=== PATIENT | male | born 1990 | race Caucasian/White ===

== ENCOUNTER 2017-11-22 13:31 | Emergency (ER) | payer OTHER, SELFPAY ==
[2017-11-22 13:32] VITALS: BP 136/90; PULSE 92; RESP 14; TEMP 37.2; O2SAT 99; BMI 26.7
--- NOTE | 2017-11-22 13:47 | ED.VISSUMM ---
- ER Visit Summary Date of Service: 11/22/17 Chief Complaint: [] boneless chicken stuck in esophagus History of Present Illness: The patient is a 27 M [] was eating boneless chicken at a restaurant when it got stuck at the level of the sternal notch, he is unable to swallow his saliva or water. He is having no difficulty with speaking or phonation. Indicates he has had this multiple times in the past where he chokes when he eats meats, he has no history of esophageal issues dysmotility masses etc. He does not have any obvious history of reflux, despite having multiple episodes of choking spells where with eating of meats he has never been seen for this condition, in fact he denies a past history Staying in the bed no distress points to the upper sternum as where he feels the food is stuck his speech is easy and normal no stridor or drooling Physical Examination: [] L signs are within normal red limits his HEENT exam and oral cavity exam unremarkable again no stridor or drooling speech is easy and normal his lungs are clear heart tones are unremarkable, upper lower extremities abdominal exam neurologic exam normal Test Results: [] Emergency Department Course and Treatment: [] That history we will start IV fluids glucagon Versed if this does not work he will need to be transferred for definitive GI management as there are no GI consultations available today he agrees and understands Patient vomited once spontaneously and then afterwards he stated that the obstruction resolved by itself, he received no medication. Afterwards he was able to drink multiple glasses of water with no difficulty. We did observe him in the department he continued to have no symptoms of any kind at this time he wants to be discharged home I have explained he must follow-up with GI, avoid meats chew all of his foods appropriately and return for change in symptoms he will be given the referrals Treatment Plan: [] Disposition: [] Stable stable home Impression: [] Esophageal food obstruction resolved spontaneously This note was generated with [employer] dictation software. It may contain incorrect words, spelling, and punctuation that were not noted in review of the chart prior to signing ED Disposition - Plan for ED Patient: Chief Complaint: Foreign Body Referrals: Care Physician,No Primary [Primary Care Provider] -
--- NOTE | 2017-11-22 14:02 | ED.RN ---
PT ATTEMPTING TO SWALLOW WATER AND FELT FB DISLODGE. ABLE TO DRINK FLUIDS NOW.
--- NOTE | 2017-11-22 14:33 | ED.DEP ---
ED Disposition - Plan for ED Patient: Chief Complaint: Foreign Body Instructions: ED Foreign Body Esophageal Rslv Referrals: Care Physician,No Primary [Primary Care Provider] - Maurilio Atkins MD [STAFF PHYSICIAN] -
[2017-11-22 15:01] VITALS: BP 118/76; PULSE 84; RESP 16; O2SAT 96
== END 2017-11-22 15:01 | disposition home or self-care (01) ==
PROVIDERS: Emergency Provider Emergency Medicine
DX: T18.128A Food in esophagus causing other injury, initial encounter (principal)
CPT/HCPCS: 99282; J7040; A4216

== ENCOUNTER → 2018-02-10 16:36 | Outpatient (CLI) | payer OTHER, SELFPAY ==
[2018-02-12 16:10] LABS: Endomysial Antibody IgA Negative (Negative)
[2018-02-13 14:22] LABS: Immunoglobulin A 113 mg/dL (90-386); t-Transglutaminase IgA <2 U/mL (0-3)
== END ==
PROVIDERS: Visit Provider Internal Medicine Gastroenterology
DX: R10.9 Unspecified abdominal pain (principal)
CPT/HCPCS: 36415; 82784; 83516; 86255

== ENCOUNTER 2024-07-07 07:41 | Observation (INO) | payer OTHER, SELFPAY ==
[2024-07-07] VITALS (14 sets, daily range): BP systolic 126–152; BP diastolic 78–103; PULSE 75–99; RESP 12–16; TEMP 36.4–37.7; O2SAT 93–100; BMI 26.6
--- NOTE | 2024-07-07 07:55 | CT_ITS ---
STUDY: CT ABDOMEN AND PELVIS WITH CONTRAST REASON FOR EXAM: Male, 34 years old. RLQ Pain. Nausea and vomiting. History of recent vasectomy. RADIATION DOSAGE (If Supplied By Facility): CTDIvol = ( 14.79 ) mGy, DLP = ( 745.62 ) mGycm TECHNIQUE: Transaxial images were obtained from the dome of the diaphragm to the symphysis pubis without oral contrast. IV 100mL Isovue-370 was administered. Sagittal and coronal images were reconstructed. Individualized dose optimization techniques were used for this CT. COMPARISON: None. FINDINGS: The visualized lung bases are unremarkable. The visualized portions of the heart are within normal limits. Normal liver. Normal gallbladder and extrahepatic biliary system. Normal spleen. Normal pancreas. Normal bilateral adrenal glands. Normal right kidney. Normal left kidney. Normal visualized stomach. Normal small intestine. There are multiple colonic diverticula consistent with diverticulosis. There is a tubular, thick-walled appendix (>7mm), consistent with acute appendicitis. A tiny calcified appendicolith is seen within the appendiceal lumen. Normal abdominal aorta. Normal inferior vena cava. Normal retroperitoneum. Normal urinary bladder. Normal abdominal wall. Small benign-appearing bilateral inguinal lymph nodes. Loss of the normal lumbar lordosis. CT/Abdomen/Pelvis W IV Cont ONLY IMPRESSION: Findings integrated with uncomplicated acute appendicitis with a tiny calcified appendicolith. N.B. : The above Results were Read Back by Thaddeus So MD to Scar Dillon DO, and understanding confirmed on 07/07/2024 09:06:32 (ET). Electronically Signed: Thaddeus So MD at 9:07 EDT ,
--- NOTE | 2024-07-07 07:56 | ED.VIS.GI ---
HPI HPI - GI History of Present Illness Chief Complaint: Abd Pain Informant: patient Narrative Narrative: 34-year-old male presenting to the emergency room with right lower quadrant abdominal pain. Patient states that he had a vasectomy last week with Dr. Summers. He states that on Thursday he felt good enough to go to work and was doing well until yesterday. Just after lunch he developed a sharp pain in his abdomen associated with nausea and vomiting. He states now he feels the pain in the right lower quadrant. It has been constant. It hurts worse when he stands up and goes to walk. No bowel movement today. He has not felt like eating but is not experience any significant nausea. No urinary symptoms. No scrotal/testicular pain. No reported fevers. No URI symptoms. He denies any prior abdominal surgeries PFSH [facility] Medical History Vasectomy planned ACL tear Home Medications ?Medication ?Instructions ?Recorded ?Last Taken ?Type NK 07/07/24 Unknown History Allergy/AdvReac Type Severity Reaction Status Date / Time No Known Allergies Allergy Verified 07/07/24 07:41 Social History Smoking Status: Never smoker ROS ROS ED Constitutional Constitutional ED: Denies chills, fever(s) or weight loss Eyes Eyes: Denies change in vision or diplopia ENT ENT ED: Denies ear pain, rhinorrhea or sore throat Cardiovascular Cardiovascular: Denies chest pain, orthopnea, palpitations or racing heartbeat Respiratory/Chest Respiratory/Chest: Denies cough, dyspnea or orthopnea Gastrointestinal Gastrointestinal: Reports abdominal pain, nausea and vomiting; Denies diarrhea Genitourinary Genitourinary ED: Denies dysuria, hematuria or urinary frequency Musculoskeletal Musculoskeletal: Denies arthralgias or myalgias Integumentary Denies abscess or rash Neurologic Neurologic: Denies headache(s) or weakness Psychiatric Psychiatric: Denies anxiety, depression, suicidal ideation or suicidal thoughts Endocrine Endocrinology: Denies polydipsia, polyphagia or polyuria Allergic/Immunologic Allergic/Immunologic ED: Denies mouth swelling, tongue swelling or urticaria EXAM Physical Exam Const Vital Signs: 07/07/24 07:41 Temperature 97.8 F Temperature Source Oral Pulse Rate 87 Respiratory Rate 14 Blood Pressure 135/103 H Blood Pressure Mean 113 Pulse Ox 100 Oxygen Delivery Method Room Air Positive well nourished and well developed General Appearance ED: well developed and NAD HEENT Reports normocephalic, head/scalp atraumatic and moist mucous membranes Eyes PERRL and EOMs intact bilaterally Neck no lymphadenopathy, supple and no JVD Resp normal respiratory effort and clear to auscultation bilaterally Cardio regular rate, regular rhythm and no murmurs GI Auscultation: normoactive bowel sounds Palpation: soft, tender RLQ and guarding; Negative for rebound tenderness present Back/Spine no CVA tenderness and normal ROM Extremity normal to inspection General Extremety ED: Negative for edema General Extremity: Negative for edema Neuro oriented x3 and CN's II-XII intact bilaterally Sensorium / Orientation: alert Motor Exam: strength 5/5 throughout Psych mental status grossly normal Mood & Affect: Negative for depressed or tearful Skin no rashes or lesions noted and no wounds MDM MDM MDM Narrative Medical decision making narrative: Differential diagnosis includes but not limited to but not limited to appendicitis colitis ureterolithiasis UTI Patient's white count is 14.1. LFTs showed a bilirubin of 1.4 direct 0.[address] abdomen pelvis demonstrates changes consistent with acute appendicitis with appendicolith. Patient received pain and nausea medication. I had ordered Zosyn and discussed the case with our on-call surgeon Dr. Jimenez. Plan is admission into hospital for operative care. History & Record Review Discussion w/independent historian: Patient Lab Data Attestation: I reviewed the patient's lab results. Labs: Laboratory Results - last 24 hr 07/07/24 08:10 WBC 14.1 H RBC 6.09 Hgb 16.8 H Hct 50.1 MCV 82.3 MCH 27.6 MCHC 33.5 RDW Std Deviation 36.9 RDW Coeff of Darryl 12.4 Plt Count 265 MPV 10.1 Immature Gran % (Auto) 0.400 Neut % (Auto) 82.2 H Lymph % (Auto) 9.0 L [place] % (Auto) 7.8 Eos % (Auto) 0.3 Baso % (Auto) 0.3 Absolute Neuts (auto) 11.6 H Absolute Lymphs (auto) 1.27 Nucleated RBC % 0 Sodium 137 Potassium 3.7 Chloride 102 Carbon Dioxide 31.0 Anion Gap 4 L BUN 14 Creatinine 1.02 Estim Creat Clear Calc 97.79 Est GFR (MDRD) Af Amer 107 Est GFR (MDRD) Non-Af 88 BUN/Creatinine Ratio 13.7 Glucose 113 H Calcium 9.8 Total Bilirubin 1.40 H Direct Bilirubin 0.27 AST 18 ALT 39 Alkaline Phosphatase 89 Total Protein 7.7 Albumin 3.9 Globulin 3.8 Lipase 18 Radiography Diagnostic Testing: Clinical Impression(s) from Imaging Studies Abdomen/Pelvis CT 07/07/24 07:55 IMPRESSION: Findings integrated with uncomplicated acute appendicitis with a tiny calcified appendicolith. N.B. : The above Results were Read Back by Thaddeus So MD to Scar Dillon DO, and understanding confirmed on 07/07/2024 09:06:32 (ET). Electronically Signed: Thaddeus So MD at 9:07 EDT , ADDENDUM: 07/07/24 0914 IMPRESSION: Findings integrated with uncomplicated acute appendicitis with a tiny calcified appendicolith. N.B. : The above Results were Read Back by Thaddeus So MD to Scar Dillon DO, and understanding confirmed on 07/07/2024 09:06:32 (ET). Electronically Signed: Thaddeus So MD at 9:07 EDT , Management Discussion w/another healthcare provider: Certified Orthotist (Dr. Jimenez) and Radiologist (Dr. So) Discharge Plan Dx/Rx/DC Orders Clinical Impression: Acute appendicitis, Abdominal pain, acute Disposition Disposition: Acute Care Hospital [facility] Discharge Date/Time: 07/07/24 10:39
[2024-07-07] MEDS: Ondansetron 4 MG/2 ML Vial IV (08:16)
[2024-07-07] MEDS: Morphine 4 MG/ML Syringe IV (08:16)
[2024-07-07 08:26] LABS: Absolute Lymphocyte Count 1.27 X10^3/uL (0.83-4.51); Absolute Neutrophil Count 11.6 X10^3/uL (2.0-7.7); Basophil# 0.04 X10^3/uL; Basophil% 0.3 % (0-1); Eosinophil# 0.04 X10^3/uL; Eosinophils% 0.3 % (0-5); Hematocrit 50.1 % (40-54); Hemoglobin 16.8 g/dL (13.0-16.5); Lymphocyte # 1.27 X10^3/ul (0.83-4.51); Mean Corp Hgb Conc 33.5 g/dL (32-36); Mean Corpuscular Hgb 27.6 pg (27.0-32.0); Mean Corpuscular Volume 82.3 fL (80-94); Mean Platelet Vol. 10.1 fl (6.2-12.0); Monocyte% 7.8 % (0-10); NRBC Flagged by Analyzer 0 % (0-5); Neutrophil # 11.59 X10^3/uL (2.7-7.7); Neutrophil % 82.2 % (47-70); Platelet Count 265 K/mm3 (150-450); RBC Distribution Width CV 12.4 % (11.6-14.6); RBC Distribution Width SD 36.9 fl (35.1-43.9); Red Blood Count 6.09 M/mm3 (4.6-6.2); White Blood Count 14.1 K/mm3 (4.4-11.0)
--- OUTSIDE RECORDS SUMMARY | 2024-07-07 08:30 | XMS RPT_ITS | CCD ---
Author Organization [place] [employer] Results Test Name Value Interpretation Reference Range Facil ity CNOVon 08-18-2019 CNOV Office Visit ([facility] ) VAHE MART ([id number]) 1990 Date Time Provider Department 08/18/19 7:30 AM ANJU PIPER) WSTR During your visit today, we recorded the following information about you: Temperature Pulse Respiration Blood pressure 100.3 degrees 100/minute 18/minute 122/74 Weight 78.9 kg Anju Piper PA-C 08/18/2019 9:39 AM Signed Subjective HPI HPI Vahe Mart is a 29 year old male who presents today for CC of progressive sore throat, headaches in the morning- unsure as to whether this is from coughing. Cough has been present for 4 weeks now. He notes that it was dry initially, but now he's bringing up green sputum now. Has woken up in sweats since Thursday. Has not been able to sleep this past week d/t ST and cough. Also c/o hoarseness. Pt has tried OTC cough suppressant (thinks Robitussin). BP 122/74 Pulse 100 Temp 37.9 ?C (100.3 ?F) (Tympanic) Resp 18 Wt 78.9 kg (174 lb) SpO2 97% BMI 27.25 kg/m? ALLERGIES No Known Allergies ACTIVE PROBLEM LIST Headache(784.0) Family History Problem Relation Age of Onset - Diabetes Paternal Grandfather Social History Tobacco Use - Smoking status: Never Smoker - Smokeless tobacco: Never Used Substance Use Topics - Alcohol use: Not on file - Drug use: Not on file Review of Systems Constitutional: Negative for chills, fever and malaise/fatigue. HENT: Negative for congestion, ear pain, sinus pain and sore throat. Respiratory: Negative for cough, sputum production, shortness of breath and wheezing. Cardiovascular: Negative for chest pain. Neurological: Negative for headaches. Objective Physical Exam Constitutional: He is oriented to person, place, and time and well-developed, well-nourished, and in no distress. HENT: Head: Normocephalic and atraumatic. Right Ear: Tympanic membrane, external ear and ear canal normal. Tympanic membrane is not injected, not perforated, not erythematous, not retracted and not bulging. No middle ear effusion. Left Ear: Tympanic membrane, external ear and ear canal normal. Tympanic membrane is not injected, not perforated, not erythematous, not retracted and not bulging. No middle ear effusion. Nose: No mucosal edema or rhinorrhea. Right sinus exhibits no maxillary sinus tenderness and no frontal sinus tenderness. Left sinus exhibits no maxillary sinus tenderness and no frontal sinus tenderness. Mouth/Throat: Uvula is midline and mucous membranes are normal. Posterior oropharyngeal erythema (Two small vesicles noted on soft paalte) present. No oropharyngeal exudate, posterior oropharyngeal edema or tonsillar abscesses. Neck: Normal range of motion. Cardiovascular: Normal rate, regular rhythm and normal heart sounds. Pulmonary/Chest: Effort normal and breath sounds normal. He has no decreased breath sounds. He has no wheezes. He has no rhonchi. He has no rales. Lymphadenopathy: Head (right side): No submental, no submandibular, no tonsillar, no preauricular, no posterior auricular and no occipital adenopathy present. Head (left side): No submental, no submandibular, no tonsillar, no preauricular, no posterior auricular and no occipital adenopathy present. He has no cervical adenopathy. Right cervical: No superficial cervical and no posterior cervical adenopathy present. Left cervical: No superficial cervical and no posterior cervical adenopathy present. Neurological: He is alert and oriented to person, place, and time. Skin: Skin is warm and dry. Psychiatric: Affect normal. Nursing note and vitals reviewed. ASSESSMENT/PLAN: 1. Sinobronchitis - ICD9: 473.9, 490, ICD10: J32.9, J40 (primary diagnosis) - Will begin treatment with Augmentin 875 mg PO BID for 10 days - The patient should also be given Cough syrup with codeine- Rx given and warm salt water gargles, throat lozenges and/or OTC throat spray as needed for the first 5-7 days of treatment. - Supportive care with plenty of fluids, rest, and analgesia prn. - Follow up in one week if symptoms persist or worsen. - AMOXICILLIN 875 MG-POTASSIUM CLAVULANATE 125 MG TABLET - CODEINE 10 MG-GUAIFENESIN 100 MG/5 ML ORAL LIQUID - PREDNISONE 20 MG TABLET 2. Cough present for greater than 3 weeks - ICD9: 786.2, ICD10: R05 Suspect to be related to PND from sinusitis - will tx w/ prednisone d/t cough and significant throat symptoms. Rx for cheratussin printed to be taken to help w/ cough at night - CODEINE 10 MG-GUAIFENESIN 100 MG/5 ML ORAL LIQUID - PREDNISONE 20 MG TABLET 3. Sore throat - ICD9: 462, ICD10: J02.9 - Suspect to be related to PND - no evidence of strep on exam - Rapid Strep negative in the office today - Discussed supportive care treatment with fluids, rest and analgesia. - Contagious dz precautions discussed- including considered contagious until on antibiotics for 24 hours - Call back if drooling, increased temperature, symptoms of dehydration and/or still sick in one week - RAPID STREP TEST B/O - AMOXICILLIN 875 MG-POTASSIUM CLAVULANATE 125 MG TABLET - PREDNISONE 20 MG TABLET Pt advised to see PCP if symptoms persist or progress. Reviewed red flags with patient and when to seek care sooner. The patient indicates understanding of these issues and agrees with the plan. NOEMÍ Royal PA-C 08/18/2019 8:15 AM Signed RESPIRATORY INFECTION GENERAL INFORMATION: An upper respiratory tract infection, or cold, is a viral infection of the airway passages. It can be caused by any one of almost 200 different viruses. Common symptoms include a runny or stuffy nose, sneezing, watery eyes, sore throat, cough, and slight fever. Colds are contagious, especially during the first 3 or 4 days and cannot be cured by antibiotics. They are spread by coughs, sneezes, and direct contact, especially [id number]. A respiratory tract infection usually clears up in a few days, but some people may be sick for a week or two. INSTRUCTIONS: 1. Be careful not to blow your nose too hard because this may cause a nosebleed. 2. Use a cool-mist humidifier (vaporizer) to increase air moisture. This will make it easier for you to breathe. Do not use hot steam. 3. Rest as much as possible and get plenty of sleep. 4. Wash your hands often, especially after you blow your nose. Cover your mouth and nose with a tissue when you sneeze or cough. 5. Drink plenty of clear fluids (8 glasses a day) such as water, fruit juice, tea, clear soups, and carbonated beverages. CONTACT YOUR DOCTOR IF : 1. Your fever lasts more than 3 days. 2. You have a sore throat that gets worse or you see white or yellow spots in your throat. 3. Your cough gets worse or lasts more than 10 days. 4. You develop a rash anywhere on your skin. 5. You have an earache or a headache. 6. You have thick greenish or yellowish discharge from your nose. RETURN IMMEDIATELY IF: 1. You cough up thick yellow, green, mccormick, or bloody sputum. 2. You have difficulty breathing, pain in your chest, or your skin or nails look mccormick or blue. 3. You have shaking chills or a temperature over 102 F (39 C). Referring Provider: SELF [200] Allergies As of Date: 08/18/2019 (No Known Allergies) Date Reviewed: 08/18/2019 Reviewed by: Angelina Mak Ma - Fully Assessed Reason for Visit: Head Congestion [234] Cmt: cough, sore throat and headache x 4 weeks Primary Visit Diagnosis:Sinobronchi tis [J32.9, J40] Other Visit Diagnoses:Cough present for greater than 3 weeks [R05] Sore throat [J02.9] Order(s):RAPID STREP TEST B/O [[id number]] Order #: [id number] amoxicillin-clavulani c acid (AUGMENTIN) 875-125 mg per tabletTake 1 tablet by mouth twice daily for 10 days.Disp: 20 tabletRfl: 0 codeine-guaiFENesin (ROBITUSSIN AC) 10-100 mg/5 mL syrupTake 5-10 mL by mouth four times daily as needed for Cough for up to 7 days. May cause drowsiness.Disp: 120 mLRfl: 0 predniSONE (DELTASONE) 20 mg tabletTake 2 tablets by mouth once daily for 5 days.Disp: 10 tabletRfl: 0 Prescriptions as of 08/18/2019 Sig: AMOXICILLIN 875 MG-POTASSIUM * Take 1 tablet by mouth twice * CODEINE 10 MG-GUAIFENESIN 100* Take 5-10 mL by mouth four ti* PREDNISONE 20 MG TABLET Take 2 tablets by mouth once * Problem List As Of Date 08/18/2019 Noted Resolved Headache [R51] 06/21/2010 Other instructions from your clinician: RESPIRATORY INFECTION GENERAL INFORMATION: An upper respiratory tract infection, or cold, is a viral infection of the airway passages. It can be caused by any one of almost 200 different viruses. Common symptoms include a runny or stuffy nose, sneezing, watery eyes, sore throat, cough, and slight fever. Colds are contagious, especially during the first 3 or 4 days and cannot be cured by antibiotics. They are spread by coughs, sneezes, and direct contact, especially [id number]. A respiratory tract infection usually clears up in a few days, but some people may be sick for a week or two. INSTRUCTIONS: 1. Be careful not to blow your nose too hard because this may cause a nosebleed. 2. Use a cool-mist humidifier (vaporizer) to increase air moisture. This will make it easier for you to breathe. Do not use hot steam. 3. Rest as much as possible and get plenty of sleep. 4. Wash your hands often, especially after you blow your nose. Cover your mouth and nose with a tissue when you sneeze or cough. 5. Drink plenty of clear fluids (8 glasses a day) such as water, fruit juice, tea, clear soups, and carbonated beverages. CONTACT YOUR DOCTOR IF : 1. Your fever lasts more than 3 days. 2. You have a sore throat that gets worse or you see white or yellow spots in your throat. 3. Your cough gets worse or lasts more than 10 days. 4. You develop a rash anywhere on your skin. 5. You have an earache or a headache. 6. You have thick greenish or yellowish discharge from your nose. RETURN IMMEDIATELY IF: 1. You cough up thick yellow, green, mccormick, or bloody sputum. 2. You have difficulty breathing, pain in your chest, or your skin or nails look mccormick or blue. 3. You have shaking chills or a temperature over 102 F (39 C). Prescriptions ordered this encounter Disp Refills Start End AMOXICILLIN 875 MG-POTASSIUM CLAVULA* 20 t* 0 08/18/2019 08/28/2019 Class: Print RX Route: ORAL Sig: Take 1 tablet by mouth twice daily for 10 days. CODEINE 10 MG-GUAIFENESIN 100 MG/5 M* 120 * 0 08/18/2019 08/25/2019 Class: Print RX Route: ORAL Sig: Take 5-10 mL by mouth four times daily as needed for Cough for up to 7 days. May cause drowsiness. PREDNISONE 20 MG TABLET 10 t* 0 08/18/2019 08/23/2019 Route: ORAL Sig: Take 2 tablets by mouth once daily for 5 days. Encounter Status:Closed by ANJU PIPER on 08/18/19 Normal [facility] PROGRESSon 08-18-2019 PROGRESS HNO ID: [id number] Author: Anju Piper (Pa) Service: ? Author Type: Physician Food Scientist Type: Progress Notes Filed: 08/18/2019 9:39 AM Note Text: Subjective HPI HPI Vahe Mart is a 29 year old male who presents today for CC of progressive sore throat, headaches in the morning- unsure as to whether this is from coughing. Cough has been present for 4 weeks now. He notes that it was dry initially, but now he's bringing up green sputum now. Has woken up in sweats since Thursday. Has not been able to sleep this past week d/t ST and cough. Also c/o hoarseness. Pt has tried OTC cough suppressant (thinks Robitussin). BP 122/74 Pulse 100 Temp 37.9 ?C (100.3 ?F) (Tympanic) Resp 18 Wt 78.9 kg (174 lb) SpO2 97% BMI 27.25 kg/m? ALLERGIES No Known Allergies ACTIVE PROBLEM LIST Headache(784.0) Family History Problem Relation Age of Onset - Diabetes Paternal Grandfather Social History Tobacco Use - Smoking status: Never Smoker - Smokeless tobacco: Never Used Substance Use Topics - Alcohol use: Not on file - Drug use: Not on file Review of Systems Constitutional: Negative for chills, fever and malaise/fatigue. HENT: Negative for congestion, ear pain, sinus pain and sore throat. Respiratory: Negative for cough, sputum production, shortness of breath and wheezing. Cardiovascular: Negative for chest pain. Neurological: Negative for headaches. Objective Physical Exam Constitutional: He is oriented to person, place, and time and well-developed, well-nourished, and in no distress. HENT: Head: Normocephalic and atraumatic. Right Ear: Tympanic membrane, external ear and ear canal normal. Tympanic membrane is not injected, not perforated, not erythematous, not retracted and not bulging. No middle ear effusion. Left Ear: Tympanic membrane, external ear and ear canal normal. Tympanic membrane is not injected, not perforated, not erythematous, not retracted and not bulging. No middle ear effusion. Nose: No mucosal edema or rhinorrhea. Right sinus exhibits no maxillary sinus tenderness and no frontal sinus tenderness. Left sinus exhibits no maxillary sinus tenderness and no frontal sinus tenderness. Mouth/Throat: Uvula is midline and mucous membranes are normal. Posterior oropharyngeal erythema (Two small vesicles noted on soft paalte) present. No oropharyngeal exudate, posterior oropharyngeal edema or tonsillar abscesses. Neck: Normal range of motion. Cardiovascular: Normal rate, regular rhythm and normal heart sounds. Pulmonary/Chest: Effort normal and breath sounds normal. He has no decreased breath sounds. He has no wheezes. He has no rhonchi. He has no rales. Lymphadenopathy: Head (right side): No submental, no submandibular, no tonsillar, no preauricular, no posterior auricular and no occipital adenopathy present. Head (left side): No submental, no submandibular, no tonsillar, no preauricular, no posterior auricular and no occipital adenopathy present. He has no cervical adenopathy. Right cervical: No superficial cervical and no posterior cervical adenopathy present. Left cervical: No superficial cervical and no posterior cervical adenopathy present. Neurological: He is alert and oriented to person, place, and time. Skin: Skin is warm and dry. Psychiatric: Affect normal. Nursing note and vitals reviewed. ASSESSMENT/PLAN: 1. Sinobronchitis - ICD9: 473.9, 490, ICD10: J32.9, J40 (primary diagnosis) - Will begin treatment with Augmentin 875 mg PO BID for 10 days - The patient should also be given Cough syrup with codeine- Rx given and warm salt water gargles, throat lozenges and/or OTC throat spray as needed for the first 5-7 days of treatment. - Supportive care with plenty of fluids, rest, and analgesia prn. - Follow up in one week if symptoms persist or worsen. - AMOXICILLIN 875 MG-POTASSIUM CLAVULANATE 125 MG TABLET - CODEINE 10 MG-GUAIFENESIN 100 MG/5 ML ORAL LIQUID - PREDNISONE 20 MG TABLET 2. Cough present for greater than 3 weeks - ICD9: 786.2, ICD10: R05 Suspect to be related to PND from sinusitis - will tx w/ prednisone d/t cough and significant throat symptoms. Rx for cheratussin printed to be taken to help w/ cough at night - CODEINE 10 MG-GUAIFENESIN 100 MG/5 ML ORAL LIQUID - PREDNISONE 20 MG TABLET 3. Sore throat - ICD9: 462, ICD10: J02.9 - Suspect to be related to PND - no evidence of strep on exam - Rapid Strep negative in the office today - Discussed supportive care treatment with fluids, rest and analgesia. - Contagious dz precautions discussed- including considered contagious until on antibiotics for 24 hours - Call back if drooling, increased temperature, symptoms of dehydration and/or still sick in one week - RAPID STREP TEST B/O - AMOXICILLIN 875 MG-POTASSIUM CLAVULANATE 125 MG TABLET - PREDNISONE 20 MG TABLET Pt advised to see PCP if symptoms persist or progress. Reviewed red flags with patient and when to seek care sooner. The patient indicates understanding of these issues and agrees with the plan. Anju Piper PA-C Normal [facility] Summary Purpose Family History No Family History Records Found Advance Directives No Advanced Directives Records Found Additional Source Comments (unrecognized sect ion and content) No Status Records Found INFORMATION SOURCE (unrecogn ized section and content) DATE CREATED AUTHOR 08/19/2019 [facility] FOR RECORDS PERTAINING TO PATIENTS WHO ARE OR HAVE BEEN ENROLLED IN A CHEMICAL DEPENDENCY/SUBSTANCEABUSE PROGRAM, SOME INFORMATION MAY BE OMITTED. This clinical summary was aggregated from multiple sources. Caution should be exercised in using it in the provision of clinical care. This summary normalizes information from multiple sources, and as a consequence, information in this document may materially change the coding, format and clinical context of patient data. In addition, data may be omitted in some cases. CLINICAL DECISIONS SHOULD BE BASED ON THE PRIMARY CLINICAL RECORDS. [facility] [employer] [facility]. provides no warranty or guarantee of the accuracy or completeness of information in this document.
[2024-07-07 08:48] LABS: AST(SGOT) 18 U/L (15-37); Alanine Aminotransfer ALT/SGPT 39 U/L (16-61); Albumin, Serum 3.9 g/dL (3.2-5.0); Alkaline Phosphatase 89 U/L (45-117); Anion Gap 4 (5-15); BUN 14 mg/dL (7-18); BUN/Creat Ratio 13.7 RATIO (10-20); Bilirubin, Direct 0.27 mg/dL (0.00-0.30); Calcium,Total 9.8 mg/dL (8.5-10.1); Chloride 102 mmol/L (98-107); Creatinine, Serum 1.02 mg/dL (0.70-1.30); EST Glomerular Filtration Rate 88 mL/min (>60); Est Glom Filt Rate - Afr Amer 107 mL/min (>60); Estimated Creatinine Clearance 97.79 ml/min; Globulin 3.8 g/dL (2.2-4.2); Glucose 113 mg/dL (74-106); Lipase 18 U/L (13-75); Potassium 3.7 mmol/L (3.5-5.1); Protein, Total 7.7 g/dL (6.4-8.2); Sodium Level 137 mmol/L (136-145)
[2024-07-07] MEDS: Piperacil/Tazobactam 4.5 GM in 0.9% Normal Saline (100mL MB+) 100 ML IV (09:10)
--- NOTE | 2024-07-07 09:35 | HP.PCM_ITS ---
HPI - General General Date of Admission: 07/07/24 Date of Service: 07/07/24 Chief Complaint: Right lower quadrant abdominal pain HPI Narrative JAYDEN MART, is a 34 M who presents with a 1 venita history of right lower quadrant abdominal pain. Patient noted yesterday he was feeling unwell. He notes pain started in the upper abdomen and by yesterday evening the pain had radiated down to the right lower quadrant. Pain was associated with nausea, vomiting and lack of appetite. Patient notes he was feeling chilled and had night sweats overnight. Patient notes the car ride in was very uncomfortable. Patient denies having pain like this previously. Patient stated he recently had a vasectomy on last with Dr. Summers. He had returned to work since that time and thought he may have overdid it at work. He stated when the pain became worse and he was vomiting, he knew something was not right. He notes only previous surgeries were ACL and vasectomy. He denies any previous abdominal surgeries. He denies any cardiac or pulmonary history. He does not follow with a development assistant or consumer relations specialist for any reason. He denies having any medication allergies. He denies any side effects or complications from anesthesia previously. WBC is 14.1 with left shift, Hgb 16.8, Hct 50.1, Plt 265. CT scan ab/pel demonstrated uncomplicated acute appendicitis with tiny calcified appendicolith. [facility] Medical History (Updated 07/07/24 @ 09:55 by Reena CASTANEDA PABlilC) Vasectomy planned ACL tear Home Medications ?Medication ?Instructions ?Recorded ?Last Taken ?Type NK 07/07/24 Unknown History Allergy/AdvReac Type Severity Reaction Status Date / Time No Known Allergies Allergy Verified 07/07/24 07:41 Social History Smoking Status: Never smoker ROS Constitutional Constitutional: Reports systems reviewed and no addt'l complaints, except as documented Eyes Eyes: Reports systems reviewed and no addt'l complaints, except as documented ENT HEENT: Reports systems reviewed and no addt'l complaints, except as documented Cardiovascular Cardiovascular: Reports systems reviewed and no addt'l complaints, except as documented Respiratory/Chest Respiratory/Chest: Reports systems reviewed and no addt'l complaints, except as documented Gastrointestinal Gastrointestinal: Reports systems reviewed and no addt'l complaints, except as documented Genitourinary Genitourinary: Reports systems reviewed and no addt'l complaints, except as documented Musculoskeletal Musculoskeletal: Reports systems reviewed and no addt'l complaints, except as documented Integumentary Integumentary: Reports systems reviewed and no addt'l complaints, except as documented Neurologic Neurologic: Reports systems reviewed and no addt'l complaints, except as documented Psychiatric Psychiatric: Reports systems reviewed and no addt'l complaints, except as documented Endocrine Endocrinology: Reports systems reviewed and no addt'l complaints, except as documented Hematologic/Lymphatic Hematologic/Lymphatic: Reports systems reviewed and no addt'l complaints, except as documented Allergic/Immunologic Allergic/Immunologic: Reports systems reviewed and no addt'l complaints, except as documented Vital Signs Vital Signs Vital Signs: 07/07/24 07:41 Temperature 97.8 F Temperature Source Oral Pulse Rate 87 Respiratory Rate 14 Blood Pressure 135/103 H Blood Pressure Mean 113 Pulse Ox 100 Oxygen Delivery Method Room Air Weight Weight: 175 lb 7.807 oz Body Mass Index (BMI) 26.6 Physical Exam Const alert, oriented x3 and no apparent distress HEENT normocephalic and head/scalp atraumatic Eyes PERRL Neck full ROM Resp normal respiratory effort and clear to auscultation bilaterally Cardio regular rate and regular rhythm GI GI Narrative: Abdomen- soft, guarding and tenderness to palpation in the right lower quadrant. Hypoactive bowel sounds. Positive Will's sign. no CVA tenderness Back/Spine no CVA tenderness Extremity normal to inspection and no pedal edema Skin no rashes or lesions noted Neuro no focal motor deficits and no sensory deficits noted Psych mental status grossly normal, thought process normal and cooperative Results Lab / Micro Data 07/07/24 08:10 07/07/24 08:10 Labs: Laboratory Results - last 24 hr 07/07/24 08:10: WBC 14.1 H, RBC 6.09, Hgb 16.8 H, Hct 50.1, MCV 82.3, MCH 27.6, MCHC 33.5, RDW Std Deviation 36.9, RDW Coeff of Darryl 12.4, Plt Count 265, MPV 10.1, Immature Gran % (Auto) 0.400, Neut % (Auto) 82.2 H, Lymph % (Auto) 9.0 L, Stephenson % (Auto) 7.8, Eos % (Auto) 0.3, Baso % (Auto) 0.3, Absolute Neuts (auto) 11.6 H, Absolute Lymphs (auto) 1.27, Nucleated RBC % 0, Sodium 137, Potassium 3.7, Chloride 102, Carbon Dioxide 31.0, Anion Gap 4 L, BUN 14, Creatinine 1.02, Estim Creat Clear Calc 97.79, Est GFR (MDRD) Af Amer 107, Est GFR (MDRD) Non-Af 88, BUN/Creatinine Ratio 13.7, Glucose 113 H, Calcium 9.8, Total Bilirubin 1.40 H, Direct Bilirubin 0.27, AST 18, ALT 39, Alkaline Phosphatase 89, Total Protein 7.7, Albumin 3.9, Globulin 3.8, Lipase 18 Imaging Radiology Impression Abdomen/Pelvis CT 07/07/24 07:55 IMPRESSION: Findings integrated with uncomplicated acute appendicitis with a tiny calcified appendicolith. N.B. : The above Results were Read Back by Thaddeus So MD to Scar Dillon DO, and understanding confirmed on 07/07/2024 09:06:32 (ET). Electronically Signed: Thaddeus So MD at 9:07 EDT , ADDENDUM: 07/07/24 0914 IMPRESSION: Findings integrated with uncomplicated acute appendicitis with a tiny calcified appendicolith. N.B. : The above Results were Read Back by Thaddeus So MD to Scar Dillon DO, and understanding confirmed on 07/07/2024 09:06:32 (ET). Electronically Signed: Thaddeus So MD at 9:07 EDT , Assessment & Plan Assessment/Plan (1) Acute appendicitis: QUALIFIERS: Acute appendicitis type: with localized peritonitis A ppendicitis gangrene presence: unspecified whether gangrene present A ppendicitis perforation presence: without perforation Appendicitis abscess presence: without abscess Qualified Code(s): K35.30 - Acute appendicitis with localized peritonitis, without perforation or gangrene PLAN: I am seeing this patient in conjunction with Dr. Jimenez. He will independently evaluated this patient. Patient is a pleasant 34 y/o gentleman, who presented with a 1 day history of right lower quadrant pain. He is 1 week s/p vasectomy. He noted associated nausea, vomiting with the abdominal pain. CT scan confirmed acute appendicitis with appendicolith. Dr. Jimenez will plan to perform a laparoscopic appendectomy. Procedure details, risks and benefits have been explained to the patient. Due to bed availability in the ED and AC, we will plan to admit the patient for observation with the intent to possibly discharge post-operatively today. Plan to have patient NPO and start IV Zosyn for antibiotics. Patient has had the opportunity to ask and have questions answered. Patient verbally understands and agrees with the proposed plan. Thank you for allowing us to participate in this patient's care. Charges/Coding Visit Charges OBSV E&M: 58278 Observ/hosp same date L2
--- OUTSIDE RECORDS SUMMARY | 2024-07-07 10:46 | XMS RPT_ITS | CCD ---
[facility] Organization [place] [facility] Results Test Name Value Interpretation Reference Range Facil ity CNOVon 08-18-2019 CNOV Office Visit (UCWSTR ) VAHE MART ([id number]) 1990 Date Time Provider Department 08/18/19 7:30 [...] by coughs, sneezes, and direct contact, especially [id number]. A respiratory tract infection usually clears up [...] Sore throat [J02.9] Order(s):RAPID STREP TEST B/O [[id number]] Order #: [id number] amoxicillin-clavulani c acid (AUGMENTIN) 875-125 mg per [...] by coughs, sneezes, and direct contact, especially [id number]. A respiratory tract infection usually clears up [...] Status:Closed by ANJU PIPER on 08/18/19 Normal [facility] PROGRESSon 08-18-2019 PROGRESS HNO ID: [id number] Author: Anju Piper (Pa) Service: ? Author Type: Physician Cert Occupational Therapy Asst Type: Progress Notes Filed: 08/18/2019 9:39 AM [...] with the plan. Anju Piper PA-C Normal [facility] Summary Purpose Family History No Family History Records Found Advance Directives No Advanced Directives Records Found Additional Source Comments (unrecognized sect ion and content) No Status Records Found INFORMATION SOURCE (unrecogn ized section and content) DATE CREATED AUTHOR 08/19/2019 [facility] FOR RECORDS PERTAINING TO PATIENTS WHO [...] BE BASED ON THE PRIMARY CLINICAL RECORDS. [facility]. provides no warranty or guarantee of the accuracy or completeness of information in this document.
[2024-07-07] MEDS: 0.9% Normal Saline (1000mL) 1,000 ML 100 ML IV (10:53)
[2024-07-07] MEDS: Contrast Allergy Safety Check IV (11:16)
--- NOTE | 2024-07-07 11:42 | NURSING ---
Pt off floor to surgery
--- NOTE | 2024-07-07 12:04 | PRE.ANES_ITS ---
ASA Classification* ASA Classification ASA Classification: 2 and E Assessment & Plan Anesthesia* Anesthesia Assessment Anesthesia Assessment: Discussed sedation and/or anesthesia options, risks, benefits, and alternatives with patient/parents/legal guardian/POA. Questions invited. The patient/parents/legal guardian/POA seems to understand and agrees to proceed with anesthesia plan. Reviewed the physical assessment, medical history, allergy history and patient home medications list prior to surgery/procedure/anesthetic and documented any changes. Performed airway and anesthesia risk assessments. Anesthesia Type Anesthesia Type: General (see written pre anesthesia record for full assessment) Anesthesia Focused Assessment* Temperature: 97.6 F Pulse Rate: 75 Blood Pressure: 126/92 Respiratory Rate: 12 Pulse Ox: 99 Airway Assessment Mouth opens: >3 cm Mallampati Score: II Focused Labs Anesthesia Preop lab: CBC WBC 14.1 K/mm3 (4.4-11.0) H 07/07/24 08:10 RBC 6.09 M/mm3 (4.6-6.2) 07/07/24 08:10 Hgb 16.8 g/dL (13.0-16.5) H 07/07/24 08:10 Hct 50.1 % (40-54) 07/07/24 08:10 Plt Count 265 K/mm3 (150-450) 07/07/24 08:10 CHEMISTRY Potassium 3.7 mmol/L (3.5-5.1) 07/07/24 08:10 Sodium 137 mmol/L (136-145) 07/07/24 08:10 BUN 14 mg/dL (7-18) 07/07/24 08:10 Creatinine 1.02 mg/dL (0.70-1.30) 07/07/24 08:10 Glucose 113 mg/dL (74-106) H 07/07/24 08:10 COAG Pre-Assessment Diagnosis/Proposed Procedure Planned Operative Procedure(s): lap appy Anesthesia History Anesthesia History - bench worker hollow handle: Anesthesia History - bench worker hollow handle Hx Hospitalization Any Problems With Anesthesia No 07/07/24 11:08 Cholinesterase deficiency You/Your Family Experience fever (hyperthermia) with Relationship Recent Exposure to Contagious Disease Does patient have nerve No 07/07/24 11:08 stimulator Patient instructed to have device shut off --Does patient have Pacemaker No 07/07/24 11:10 or ICD? When Was Last Pacemaker Check QUESTION #4 FULL TEXT: You/Your Family Experience fever (hyperthermia) with Anesthesia Last Oral Intake Last Oral intake: Last Oral Intake NPO since 00:00 07/07/24 11:10 Meds taken in AM with sips of No 07/07/24 11:10 water? Meds patient instructed to take am of surgery PONV PONV - bench worker hollow handle: PONV - bench worker hollow handle Female HX of Motion Sickness HX of N/V After Surgery Non-Smoker Duration of Surgery greater than 60 minutes Number of Risk Factors PONV Score Height & Weight Height & Weight: Anesthesia: Height & Weight Height 5 ft 8 in 07/07/24 11:10 Weight: 79.6 kg 07/07/24 11:10 Body Mass Index (BMI) 26.6 07/07/24 11:10 Respiratory Assessment Respiratory Assessment - bench worker hollow handle: Respiratory Tract Infection Hx - bench worker hollow handle Hx Respiratory Tract Infection STOP Sleep Apnea STOP Sleep Apnea - bench worker hollow handle: STOP Sleep Apnea - bench worker hollow handle Hx Hypertension No 07/07/24 10:39 Hx Sleep Apnea No 07/07/24 10:39 CPAP BIPAP Do you snore loudly (louder No 07/07/24 10:39 than talking or can be heard Do you often feel tired/ No 07/07/24 10:39 fatigued/ sleepy during daytime? Has anyone observed you stop No 07/07/24 10:39 breathing during sleep? STOP Results Negative 07/07/24 10:39 QUESTION #5 FULL TEXT : Do you snore loudly (louder than talking or can be heard through closed doors)? Tobacco Use History Tobacco Use History - bench worker hollow handle: Tobacco Use History - bench worker hollow handle Tobacco Use Smoking Status Never smoker 07/07/24 10:39 Hx Tobacco Use No 07/07/24 10:39 Years Smoking Packs Smoked per Day Smoking Cessation Date was within the last 15 years Hx Smoking Cessation Date Hx Smoking Cessation Counseling Hematologic Medial History Hematologic Hx - bench worker hollow handle: Hematologic Medical Hx - door person Hx of Blood Transfusion No 07/07/24 10:39 Hx of Transfusion in last 3 No 07/07/24 10:39 Months Date of Last Transfusion (if within last 3 months) Ever experience any problems No 07/07/24 10:39 with transfusion(s)? Specify any problems Hx of Preganancy in last 3 N/A 07/07/24 10:39 Months Nurse Filling Out Transfusion NBILANCIN 07/07/24 10:39 & Questions: Date: 07/07/24 07/07/24 10:39 Time: 10:54 07/07/24 10:39 Patient unable to answer at this time (ie. confused, unrespo /Reproduction History /Reproductive History - bench worker hollow handle: /Reproductive Hx- bench worker hollow handle Hx Now Gestational Age (in weeks): EDC: Hx Hx Para Hx Section SAB Active Medications Active Medications: Current Medications Generic Name Dose Route Start Last Admin Trade Name Freq PRN Reason Stop Dose Admin Acetaminophen 650 mg 07/07/24 10:34 Acetaminophen 325 Mg Tablet PO Q6H PRN PRN Pain 1-10 Or Fever >100.7 Sodium Chloride 1,000 mls @ 100 mls/hr 07/07/24 10:34 07/07/24 10:53 IV 07/07/24 20:33 100 mls/hr .Q10H LATIA Administration Protocol Piperacillin Sod/Tazobactam 50 mls @ 12.5 mls/hr 07/07/24 14:00 Sod 3.375 gm/ Sodium Chloride IV Q8 LATIA Sodium Chloride 500 mls @ 15 mls/hr 07/07/24 10:57 IV .[id number] PRN Saline Flush Sodium Chloride 500 mls @ 15 mls/hr 07/07/24 10:57 IV .[id number] PRN Additional IVPB Infusion Morphine Sulfate 2 - 4 mg 07/07/24 10:34 Morphine 2 Mg/Ml Syringe IV Q3H PRN PRN Pain Score 6-10 Ondansetron HCl 4 mg 07/07/24 10:34 Ondansetron 4 Mg/2 Ml Vial IV Q8H PRN PRN NAUSEA/VOMITING Oxycodone HCl 5 mg 07/07/24 10:34 Oxycodone 5 Mg Tablet PO Q4H PRN PRN Pain Score 4-10 Sodium Chloride 10 - 40 ml 07/07/24 10:57 0.9% Saline Lock 10 Ml Syringe IV UD PRN SALINE FLUSH PFSH Medical History Vasectomy planned ACL tear Home Medications ?Medication ?Instructions ?Recorded ?Last Taken ?Type NK 07/07/24 Unknown History Allergy/AdvReac Type Severity Reaction Status Date / Time No Known Allergies Allergy Verified 07/07/24 07:41 Social History Smoking Status: Never smoker Review of Systems (Anesthesia) ROS Narrative System reviewed and no additional complaints, except as documented.
--- NOTE | 2024-07-07 13:00 | APP_PTH ---
PATHOLOGY RESULTS PATIENT: JAYDEN MART LOC: [facility] U#:[id number] AGE/SX: 34/M ROOM: [facility] RE07/07/[address]: Dr. Juan Antonio Jimenez MD : 1990 BED: 1 DIS: 07/07/2024 SPEC #: [id number] RECD: 07/07/24 18:09 STATUS: GARY AARON #: [id number] KIARA: 07/07/24 13:[address]: Juan Antonio Jimenez DEPT: SURGICAL PATHOLOGY RECD BY: Krzysztof Spicer ENTERED: 07/08/24 07:44 SP TYPE: APPENDIX OT DR: No Primary Care Phys Tissues: Appendix, NOS Procedures: Surgery Specimen Level III HEADER OPERATION: Laparoscopic, appendectomy PRE-OP DIAGNOSIS: Acute appendicitis TISSUE SUBMITTED: Appendix MICROSCOPIC DIAGNOSIS Appendix, appendectomy: Acute appendicitis and periappendicitis. 07/11/2024 MICROSCOPIC DESCRIPTION Slides are reviewed. GROSS DESCRIPTION Received in fixative is one container labeled with the patient's name and designated appendix. The specimen consists of vermiform appendix measuring 8.3 cm in length and 1.0 cm in average diameter. No gross perforations are evident. Serial sections reveal a patent lumen. No mass lesion is identified. Foot Orthopedist sections are submitted in one cassette. / AM: 07/08/2024 TC:2 CPT: [id number]
[2024-07-07] MEDS: Piperacil/Tazobactam 3.375 GM in 0.9% Normal Saline (50mL MB+) 50 ML IV (14:10)
[2024-07-07] MEDS: Bupiv/Epi 0.25% 30 ML Vial (15:28)
--- NOTE | 2024-07-07 15:49 | PCM.POST.ANE ---
Anesthesia: Postop Eval I Current Vital Signs Temperature: 99.3 F Pulse Rate: 99 Blood Pressure: 152/86 Respiratory Rate: 16 Pulse Ox: 100 Oxygen Delivery Method: Room Air Assessment Airway patent: Yes Spontaneous unlabored respirations: Yes Mental status: Awake and Calm nausea: No Vomiting: No Anesthesia Complication: No Fluid Hydration Crystalloid volume administer (ml): 700 Total IV fluid infused: 700 Progress Note Anesthesia document: Postop Eval 1 completed: Yes
--- NOTE | 2024-07-07 15:59 | OP.PCM_ITS ---
Problems Associated Problem List Diagnoses (1) Acute appendicitis: Operative Report (Standard) Operative Information Surgery/Procedure Performed: Laparoscopic appendectomy Surgeon: Juan Antonio Jimenez Date of Procedure: 07/07/24 Procedure Start Time: 14:44 Procedure Stop Time: 15:34 Pre-Operative Diagnosis: Acute appendicitis Post-Operative Diagnosis: Acute appendicitis Select all DRAINS/GRAFTS/IMPLANTS that apply: None Type of Anesthesia: General Estimated Blood Loss: 20 mL Specimen collected: Yes Description of specimen(s) removed: Appendix Description of surgery: The patient is a 34-year-old male who presented to the emergency room earlier today with a less than 24-hour history of abdominal pain. He was seen evaluate by the ER staff. He was found to have an elevated white count. CT scan showed acute appendicitis. Patient was subsequently admitted with plans for a laparoscopic appendectomy today. Following informed consent, the patient was brought to the operating room and placed in a supine position. The abdomen is then prepped and draped in the usual sterile manner. A 5 mm incision was made just below the umbilicus which a 5 mm trocar was placed optically. This was placed without incident. The abdomen is then fully insufflated with CO2 gas. There were no signs of bowel or vascular injury. Another 5 mm trocar was placed in the left lower quadrant under direct visualization a 12 mm trocar was placed in the left upper quadrant. The patient was then positioned with some roll to the left and some head down to improve visualization. The small bowel/terminal ileum appeared to be adherent to the right lateral abdominal wall. This was peeled away to reveal the inflamed appendix. This was nonperforated but quite inflamed. This was dissected free. A [place] dissector was then used to create a small window in the mesentery near the base of the appendix. A laparoscopic staple load was fired across the base the appendix flush with the cecum. Next the mesoappendix was stapled using 3 vascular loads as the appendix was quite elongated. After the second vascular load was applied and the stapler was released, there was some bleeding from a small artery. This was clipped several times with a 10 mm clip organic preparation analyst until hemostasis was achieved. There was about 20 cc of blood loss at that point. The appendix once free was placed in Endobag and brought out th rough the 12 mm trocar site. The 12 mm trocar was then replaced. The right lower quadrant was then copiously irrigated and suctioned dry. Hemostasis was excellent. The fascia at the 12 mm trocar site was closed using 0 PDS with the aid of a suture passer/fascial closure device. The remaining trocars were opened up and insufflation was allowed to escape. There was no signs of bowel or vascular injury at the completion of the surgery. Local anesthetic was injected each of the incisions incisions were then closed with 5-0 Vicryl. Skin glue was applied as dressing. He was awakened anesthesia and taken the PACU in good condition. A YIELD LOSS INSPECTOR was utilized as a assistant professor of communication. Her role included assistance with prepping and positioning of the patient as well as holding the laparoscopic came ra. She also assisted in skin closure. Surgical Findings: Acute appendicitis without perforation Net Programmer Analyst operations project manager: Yes Maintenance Helper: Silvia De La Rosa Tasks completed by assistant food service director: Other (Holding the camera. Assistance with skin closure) Additional environmental services assistant?: No Complications Complications: No Admit VTE Documentation VTE Present on Admission: No VTE Pharm Prophylaxis ordered?: No Procedures Digestive 40xxx-49xxx: 23243 Laparoscopy appendectomy
--- NOTE | 2024-07-07 16:12 | DCINST_ITS ---
Discharge Instructions Diet Discharge Diet: Light diet - advance as tolerated Activity Discharge Activity: Return to Normal Activity and May Shower May shower in (days): 1 Lifting Restrictions: Keep lifting under 20 pounds for 3 to 4 weeks Dressing / Incision Call your doctor if your incision/area has: Continuous Slow Oozing, Sudden Increased Bleeding, Increased Pain/ Swelling, Increased Redness, Foul Smelling Discharge and Swelling at the incision site Call your doctor if you observe: Fever of 101 or Higher Cleanse incision/area with: Soap & Water Follow Up Care Please Follow Up With: Juan Antonio Jimenez MD When: 2 weeks Test Results: Test results from this visit will be discussed in further detail at your follow- up appointment, if applicable. Discharge Plan Admission Admit Date/Time: 07/07/24 09:29 Primary Reason for Your Visit: Acute appendicitis Attending Provider: Juan Antonio Jimenez Primary Care Provider: Care Physician,No Primary Discharge Orders/Prescriptions Prescriptions: No Action NK Referrals / Follow Up: Care Physician,No Primary [Primary Care Provider] -
--- NOTE | 2024-07-07 16:25 | PCM.DC.SUM ---
Providers Date of Admission: 07/07/24 Date of Discharge: 07/07/24 Primary Care Physician: Christel Primary Care Phys None none Reason For Visit: ABD PAIN Diagnosis Discharge Diagnosis (1) Acute appendicitis: Status: Acute Code(s): K35.80 - Unspecified acute appendicitis Qualifiers: Acute appendicitis type: with localized peritonitis Appendicitis gangrene presence: unspecified whether gangrene present Appendicitis perforation presence: without perforation Appendicitis abscess presence: without abscess Qualified Code(s): K35.30 - Acute appendicitis with localized peritonitis, without perforation or gangrene Medications at Discharge Home Medications oxycodone-acetaminophen 5 mg-325 mg tablet (Percocet) 1 tab PO Q8H PRN pain 3 days #7 tabs 07/07/24 Hospital Course Operations appendectomy Summary of Care Provided Hospital Course: Patient presented to the emergency room with less than 1 day history of abdominal pain. He was seen evaluate by the ER staff. He underwent a battery of laboratory testing as well as a CT scan. These results indicated acute appendicitis. He was subsequently admitted with plans for laparoscopic appendectomy. Surgery was performed earlier today. This was well-tolerated. Patient expressed interest in being discharged later today if possible. Physical Exam Narrative He is alert and oriented x 3. No acute distress. Abdomen is appropriately tender. Weight / BMI Weight Weight: 175 lb 7.807 oz Body Mass Index (BMI) 26.6 ABG / Lab / Microbiology Data 07/07/24 08:10 07/07/24 08:10 Laboratory: Laboratory Results - last 24 hr 07/07/24 08:10: WBC 14.1 H, RBC 6.09, Hgb 16.8 H, Hct 50.1, MCV 82.3, MCH 27.6, MCHC 33.5, RDW Std Deviation 36.9, RDW Coeff of Darryl 12.4, Plt Count 265, MPV 10.1, Immature Gran % (Auto) 0.400, Neut % (Auto) 82.2 H, Lymph % (Auto) 9.0 L, Stark % (Auto) 7.8, Eos % (Auto) 0.3, Baso % (Auto) 0.3, Absolute Neuts (auto) 11.6 H, Absolute Lymphs (auto) 1.27, Nucleated RBC % 0, Sodium 137, Potassium 3.7, Chloride 102, Carbon Dioxide 31.0, Anion Gap 4 L, BUN 14, Creatinine 1.02, Estim Creat Clear Calc 97.79, Est GFR (MDRD) Af Amer 107, Est GFR (MDRD) Non-Af 88, BUN/Creatinine Ratio 13.7, Glucose 113 H, Calcium 9.8, Total Bilirubin 1.40 H, Direct Bilirubin 0.27, AST 18, ALT 39, Alkaline Phosphatase 89, Total Protein 7.7, Albumin 3.9, Globulin 3.8, Lipase 18 Radiography Diagnostic Testing: Radiology Impression Abdomen/Pelvis CT 07/07/24 07:55 IMPRESSION: Findings integrated with uncomplicated acute appendicitis with a tiny calcified appendicolith. N.B. : The above Results were Read Back by Thaddeus So MD to Scar Dillon DO, and understanding confirmed on 07/07/2024 09:06:32 (ET). Electronically Signed: Thaddeus So MD at 9:07 EDT , ADDENDUM: 07/07/24 0914 IMPRESSION: Findings integrated with uncomplicated acute appendicitis with a tiny calcified appendicolith. N.B. : The above Results were Read Back by Thaddeus So MD to Scar Dillon DO, and understanding confirmed on 07/07/2024 09:06:32 (ET). Electronically Signed: Thaddeus So MD at 9:07 EDT , D/C Instructions Discharge Diet: Light diet - advance as tolerated May shower in (days): 1 Lifting Restrictions: No lifting more than 20 pounds for 3 to 4 weeks Call your doctor if your incision/area has: Continuous Slow Oozing, Sudden Increased Bleeding, Increased Pain/ Swelling, Increased Redness, Foul Smelling Discharge and Swelling at the incision site Call your doctor if you observe: Fever of 101 or Higher Cleanse incision/area with: Soap & Water Please Follow Up With: Juan Antonio Jimenez MD When: 2 weeks Meaningful Use Info Meaningful Use Meaningful Use Diagnoses (Choose all that apply): None applicable Ischemic Stroke Statin Dosing Therapy Reference: STATIN DOSE THERAPY REFERENCE: * Patients > 75 years receive moderate or high dose statin therapy. * Patients 75 years or YOUNGER should receive HIGH intensity statin dose unless contraindicated. You will be required to document reason for non-treatment if statin daily dose does not meet guidelines. HIGH DOSE STATIN THERAPY DAILY Atorvastatin > than or = to 40 mg Rosuvastatin > than or = to 20 mg Amlodipine + Atorvastatin > than or = to 2.5/40 mg Ezetimibe + Simvastatin 10/80 mg Simvastatin 80mg Discharge Plan Admission Admit Date/Time: 07/07/24 09:29 Primary Reason for Your Visit: Acute appendicitis Attending Provider: Juan Antonio Jimenez Primary Care Provider: Care Physician,Christel Primary Discharge Orders/Prescriptions Prescriptions: New oxycodone-acetaminophen [Percocet] 5-325 mg tablet 1 tab PO Q8H PRN (Reason: pain) 3 Days Qty: 7 0RF Referrals / Follow Up: Care Physician,No Primary [Primary Care Provider] - Disposition Disposition (needs filled in before D/C Order can be placed): Home, Self Care Charges/Coding Visit Charges Inpatient E&M: 30012 Disch Hosp
--- NOTE | 2024-07-08 01:00 | POSTOPAN2_ITS ---
Anesthesia Postop Eval I Sum Postop Eval Completion status Anesthesia document: Postop Eval 1 completed: Yes Anesthesia Postop Eval I Summary Anesthesia Postop Eval I Summary: Anesthesia Postop Eval I: Assessment Summary Airway patent Yes 07/07/24 15:51 [email or web address] Spontaneous unlabored Yes 07/07/24 15:51 [email or web address] respirations Mental status Awake,Calm 07/07/24 15:51 [email or web address] nausea No 07/07/24 15:51 [email or web address] [email or web address] Vomiting No 07/07/24 15:51 [email or web address] Anesthesia Postop Eval I: Fluid Summary Crystalloid volume administer 700 07/07/24 15:51 [email or web address] (ml) Colloids volume administered ( ml) Blood Product volume administered (ml) Total IV fluid infused 700 07/07/24 15:51 [email or web address] Anesthesia Postop Eval I: Summary Notes Anesthesia Complication No 07/07/24 15:51 [email or web address] [email or web address] Anesthesia Complication Comment: Post-operative progress note Anesthesia: Postop Eval II Evaluation Mental status: Awake and Calm Pain Level: 1 nausea: No Vomiting: No Complications Anesthesia Complication: No
--- NOTE | 2024-07-08 01:00 | PCM.POSTANE2 ---
Anesthesia Postop Eval I Sum Postop Eval Completion status Anesthesia document: Postop Eval 1 completed: Yes Anesthesia Postop Eval I Summary Anesthesia Postop Eval I Summary: Anesthesia Postop Eval I: Assessment Summary Airway patent Yes 07/07/24 15:51 HOSPITALITY [email or web address] Spontaneous unlabored Yes 07/07/24 15:51 HOSPITALITY [email or web address] respirations Mental status Awake,Calm 07/07/24 15:51 HOSPITALITY [email or web address] nausea No 07/07/24 15:51 HOSPITALITY HOST.GDOTT Vomiting No 07/07/24 15:51 HOSPITALITY [email or web address] Anesthesia Postop Eval I: Fluid Summary Crystalloid volume administer 700 07/07/24 15:51 HOSPITALITY HOST.GDOTT (ml) Colloids volume administered ( ml) Blood Product volume administered (ml) Total IV fluid infused 700 07/07/24 15:51 HOSPITALITY [email or web address] Anesthesia Postop Eval I: Summary Notes Anesthesia Complication No 07/07/24 15:51 HOSPITALITY [email or web address] Anesthesia Complication Comment: Post-operative progress note Anesthesia: Postop Eval II Evaluation Mental status: Awake and Calm Pain Level: 1 nausea: No Vomiting: No Complications Anesthesia Complication: No
--- OUTSIDE RECORDS SUMMARY | 2024-07-12 17:13 | XMS RPT_ITS | CCD ---
Author Organization [facility] Results Test Name Value Interpretation Reference Range Facil ity CNOVon 08-18-2019 CNOV Office Visit (UCWSTR ) VAHE MART ([id number]) 1990 Date Time Provider Department 08/18/19 7:30 [...] by coughs, sneezes, and direct contact, especially [id number]. A respiratory tract infection usually clears up [...] Sore throat [J02.9] Order(s):RAPID STREP TEST B/O [[id number]] Order #: [id number] amoxicillin-clavulani c acid (AUGMENTIN) 875-125 mg per [...] by coughs, sneezes, and direct contact, especially [id number]. A respiratory tract infection usually clears up [...] Status:Closed by ANJU PIPER on 08/18/19 Normal [facility] PROGRESSon 08-18-2019 PROGRESS HNO ID: [id number] Author: Anju Piper (Pa) Service: ? Author Type: Physician Drier Operator Type: Progress Notes Filed: 08/18/2019 9:39 AM [...] with the plan. Anju Piper PA-C Normal [facility] Summary Purpose Family History No Family History Records Found Advance Directives No Advanced Directives Records Found Additional Source Comments (unrecognized sect ion and content) No Status Records Found INFORMATION SOURCE (unrecogn ized section and content) DATE CREATED AUTHOR 08/19/2019 [facility] FOR RECORDS PERTAINING TO PATIENTS WHO [...] BE BASED ON THE PRIMARY CLINICAL RECORDS. [facility] [email or web address] [facility]. provides no warranty or guarantee of the accuracy or completeness of information in this document.
== END 2024-07-07 16:30 | disposition home or self-care (01) ==
LOC: ED 09:14 → PCU 09:39
PROVIDERS: Admitting Provider Surgery; Emergency Provider Emergency Medicine; Visit Provider Surgery
PROC: 0DTJ4ZZ Resection of Appendix, Percutaneous Endoscopic Approach (ICD-10-PCS; CPT 44970; principal; 2024-07-07 12:45)
DX: K35.30 Acute appendicitis with localized peritonitis, without perforation or gangrene (principal); Z98.52 Vasectomy status
CPT/HCPCS: 44970; 00840; 74177; 80048; 80076; 83690; 85025; 88304; 94668; 96365; 96366; 96375; 99284; J7030; Q9967; A4216; J2405